=== PATIENT | female | born 1960 | race Caucasian/White ===

== ENCOUNTER 2019-12-13 15:52 | Inpatient (IN) ==
[2019-12-13] MEDS ORDERED: CLINDAMYCIN INJ 600 MG in PREMIX 1 EACH IV STA (17:16)
[2019-12-13] MEDS ORDERED: CIPROFLOXACIN INJ 400 MG in PREMIX 1 EACH IV STA (17:20)
[2019-12-13 17:59] LABS: Alanine Aminotransferase 19 U/L (13-56); Albumin 2.7 G/DL (3.4-5.0); Alkaline Phosphatase 257 U/L (45-117); Aspartate Amino Transferase 35 U/L (0-37); Blood Urea Nitrogen 11 MG/DL (7-18); Calcium 9.4 MG/DL (8.5-10.1); Estimated Glom Filtration Rate 54 ML/MIN; Glucose 469 MG/DL (74-106); Osmolality,Calculated 274.2 MOS/KG (273-304); Total Protein 8.1 G/DL (6.4-8.3)
[2019-12-13 18:24] LABS: Bacteria,Urine Occasional /HPF (Few); Bilirubin,Urine Negative (Negative); Blood, Urine Large mg/dL (Negative); Glucose,Urine (UA) >=500 mg/dL (Negative); Ketones,Urine Negative (Negative); Nitrite,Urine Negative (Negative); Protein,Urine Negative; RBC,Urine 11 /HPF (0-4); Urine Appearance CLEAR (Clear); Urine Color Straw (Yellow); Urine Specific Gravity 1.013 (1.001-1.035); Urine Urobilinogen < 2.0 EU/DL (0.2-1.0); WBC,Urine 4 /HPF (0-6)
[2019-12-13] MEDS ORDERED: ONDANSETRON 4 MG/2 ML VIAL IV PRN (19:05)
[2019-12-13] MEDS ORDERED: DEXTROSE 50% 25 GM/50 ML VIAL IV PRN (19:05)
[2019-12-13] MEDS ORDERED: GLUCAGON 1 MG VIAL IM PRN (19:05)
[2019-12-13] MEDS ORDERED: DOCUSATE SODIUM 100 MG CAPSULE PO PRN (19:05)
[2019-12-13] MEDS ORDERED: CIPROFLOXACIN INJ 400 MG in PREMIX 1 EACH IV SCH (19:30)
[2019-12-13] MEDS ORDERED: SODIUM CHLORIDE 0.9% 2,350 ML IV ONE (20:00)
[2019-12-13] MEDS: MORPHINE 4 MG/1 ML VIAL IV PRN (20:29)
[2019-12-13] MEDS ORDERED: INSULIN REGULAR 100 UNIT/ML SUBCUT ONE (20:30)
[2019-12-13] MEDS ORDERED: ENOXAPARIN 40 MG/0.4 ML SYRINGE SUBCUT SCH (21:00)
[2019-12-13] MEDS ORDERED: SODIUM CHLORIDE 0.9% 1,000 ML IV ONE (21:00)
[2019-12-13] MEDS: INSULIN GLARGINE 100 UNIT/ML SUBCUT SCH (21:52)
[2019-12-13] MEDS: INSULIN REGULAR 100 UNIT/ML SUBCUT SCH (21:53)
[2019-12-13] MEDS ORDERED: ZALEPLON 5 MG CAPSULE PO PRN (23:46)
[2019-12-14] MEDS: MORPHINE 4 MG/1 ML VIAL IV PRN (01:10)
[2019-12-14] MEDS: CLINDAMYCIN INJ 600 MG in PREMIX 1 EACH IV SCH ×3 (01:14→17:19)
[2019-12-14] MEDS: HYDROmorphone 2 MG/1 ML VIAL IV PRN ×4 (03:49→17:44)
[2019-12-14 05:43] LABS: Basophils # 0.1 10*3/uL (0.0-0.2); Basophils % 0.7 % (0.0-0.8); Eosinophils # 0.1 10*3/uL (0.0-0.87); Eosinophils % 1.6 % (0.00-10.9); Hematocrit 43.9 VOL% (35.7-47.0); Hemoglobin 14.4 GM/DL (12.0-16.0); Immature Granulocytes % 0.4 %; Immature Granulocytes Absolute 0.03 #; Lymphocytes # 1.8 10*3/uL (1.4-4.0); Lymphocytes % 22.9 % (21.3-54.2); Mean Corpuscular HGB Conc 32.8 GM/DL (32-36); Mean Corpuscular Volume 84.3 FL (87-102); Monocytes % 14.1 % (1.7-12.7); Neutrophils % 60.3 % (38.7-73.9); Red Blood Count 5.21 MC/CUMM (3.8-5.5); Red Cell Distribution Width 15.3 % (9.3-17.3); White Blood Count 7.7 T/CUMM (4-12)
[2019-12-14 05:49] LABS: Platelet Count 72 T/CUMM (130-400)
[2019-12-14 06:06] LABS: Osmolality,Calculated 279.5 MOS/KG (273-304); Thyroid Stimulating Hormone 4.21 uIU/ml (0.358-3.74)
[2019-12-14 06:07] LABS: Platelet Estimate Decreased
[2019-12-14] MEDS: INSULIN REGULAR 100 UNIT/ML SUBCUT SCH ×4 (09:10→21:03)
[2019-12-14] MEDS ORDERED: BUPIVACAINE MPF 0.25% 30 ML VIAL ONE (09:20)
[2019-12-14] MEDS ORDERED: LIDOCAINE 1% 20 ML VIAL ONE (09:20)
[2019-12-14] MEDS ORDERED: SEVOFLURANE 1 UNIT/15 MINUTE INH ONE (10:57)
[2019-12-14] MEDS ORDERED: propofoL 200 MG/20 ML VIAL IV ONE (10:57)
[2019-12-14] MEDS ORDERED: MIDAZOLAM 2 MG/2 ML VIAL ONE (10:57)
[2019-12-14] MEDS ORDERED: LIDOCAINE 2% 5 ML VIAL ONE (10:57)
[2019-12-14] MEDS ORDERED: fentaNYL 100 MCG/2 ML VIAL ONE (10:58)
[2019-12-14] MEDS ORDERED: PHENYLEPHRINE 1 MG/10 ML SYRINGE IV ONE (10:58)
[2019-12-14] MEDS: MEROPENEM 500 MG in SODIUM CHLORIDE 0.9% 100 ML IV SCH (17:47)
[2019-12-14] MEDS: INSULIN GLARGINE 100 UNIT/ML SUBCUT SCH (21:03)
[2019-12-14] MEDS ORDERED: diphenhydrAMINE CAP 25 MG CAPSULE PO PRN (21:23)
[2019-12-15] MEDS ORDERED: traMADol 50 MG TABLET PO PRN (03:17)
[2019-12-15] MEDS ORDERED: HYDROmorphone 2 MG/1 ML VIAL IM PRN (03:19)
[2019-12-15] MEDS: CLINDAMYCIN INJ 600 MG in PREMIX 1 EACH IV SCH ×4 (03:45→17:00)
[2019-12-15] MEDS ORDERED: diphenhydrAMINE CAP 25 MG CAPSULE PO ONE (03:55)
[2019-12-15] MEDS ORDERED: CLINDAMYCIN 600 MG/4 ML VIAL IM ONE (04:00)
[2019-12-15] MEDS: MEROPENEM 500 MG in SODIUM CHLORIDE 0.9% 100 ML IV SCH ×4 (04:45→21:53)
[2019-12-15 06:09] LABS: Basophils % 0.5 % (0.0-0.8); Eosinophils # 0.1 10*3/uL (0.0-0.87); Eosinophils % 1.4 % (0.00-10.9); Hematocrit 37.8 VOL% (35.7-47.0); Hemoglobin 12.9 GM/DL (12.0-16.0); Immature Granulocytes % 0.8 %; Immature Granulocytes Absolute 0.05 #; Lymphocytes # 1.1 10*3/uL (1.4-4.0); Lymphocytes % 17.2 % (21.3-54.2); Mean Corpuscular HGB Conc 34.1 GM/DL (32-36); Mean Corpuscular Volume 81.3 FL (87-102); Monocytes % 12.8 % (1.7-12.7); Neutrophils % 67.3 % (38.7-73.9); Red Blood Count 4.65 MC/CUMM (3.8-5.5); Red Cell Distribution Width 14.7 % (9.3-17.3); White Blood Count 6.6 T/CUMM (4-12)
[2019-12-15 06:10] LABS: Platelet Count 86 T/CUMM (130-400)
[2019-12-15 06:20] LABS: Osmolality,Calculated 271.5 MOS/KG (273-304)
[2019-12-15 06:32] LABS: Microcytosis Slight; Platelet Estimate Decreased
[2019-12-15] MEDS: INSULIN REGULAR 100 UNIT/ML SUBCUT SCH ×4 (07:57→20:55)
[2019-12-15] MEDS: MORPHINE 4 MG/1 ML VIAL IV PRN (11:48)
[2019-12-15] MEDS: SODIUM HYPOCHLORITE 0.25% IRRIG 473 ML BOTTLE TOP SCH (15:27)
[2019-12-15] MEDS: metFORMIN 500 MG TABLET PO SCH (16:58)
[2019-12-15] MEDS: INSULIN GLARGINE 100 UNIT/ML SUBCUT SCH (20:55)
[2019-12-15] MEDS ORDERED: traZODone 50 MG TABLET PO SCH (21:00)
[2019-12-16] MEDS: CLINDAMYCIN INJ 600 MG in PREMIX 1 EACH IV SCH ×2 (01:35→09:13)
[2019-12-16] MEDS: MEROPENEM 500 MG in SODIUM CHLORIDE 0.9% 100 ML IV SCH ×2 (03:13→09:13)
[2019-12-16 06:03] LABS: Basophils % 0.9 % (0.0-0.8); Eosinophils # 0.1 10*3/uL (0.0-0.87); Eosinophils % 2.1 % (0.00-10.9); Hematocrit 37.8 VOL% (35.7-47.0); Hemoglobin 12.7 GM/DL (12.0-16.0); Immature Granulocytes % 0.5 %; Immature Granulocytes Absolute 0.02 #; Lymphocytes # 1.2 10*3/uL (1.4-4.0); Lymphocytes % 27.1 % (21.3-54.2); Mean Corpuscular HGB Conc 33.6 GM/DL (32-36); Mean Corpuscular Volume 81.3 FL (87-102); Mean Platelet Volume 10.6 FL (9.6-12.0); Neutrophils % 52.4 % (38.7-73.9); Red Blood Count 4.65 MC/CUMM (3.8-5.5); Red Cell Distribution Width 14.8 % (9.3-17.3); White Blood Count 4.4 T/CUMM (4-12)
[2019-12-16 06:04] LABS: Platelet Count 85 T/CUMM (130-400)
[2019-12-16 06:22] LABS: Calcium 8.9 MG/DL (8.5-10.1); Osmolality,Calculated 284.5 MOS/KG (273-304)
[2019-12-16 06:22] LABS: Calcium 9.1 MG/DL (8.5-10.1); Osmolality,Calculated 281.8 MOS/KG (273-304)
[2019-12-16 06:24] LABS: Eosinophils 4 % (0-10); Hypochromasia 1+; Lymphocytes 32 % (20-55); Microcytosis 1+; Platelet Estimate Decreased; Segmented Neutrophils 55 % (50-85); Total Cells Counted 100
[2019-12-16] MEDS ORDERED: INSULIN GLARGINE 100 UNIT/ML SUBCUT SCH (07:45)
[2019-12-16] MEDS: INSULIN REGULAR 100 UNIT/ML SUBCUT SCH ×2 (09:12→12:20)
[2019-12-16] MEDS: metFORMIN 500 MG TABLET PO SCH (09:13)
[2019-12-16 10:59] VITALS: BP 150/88
[2019-12-16] MEDS: SODIUM HYPOCHLORITE 0.25% IRRIG 473 ML BOTTLE TOP SCH (11:01)
== END 2019-12-16 13:00 | disposition home health service (06) | DRG 854 ==
LOC: N.ED 15:52 → SUATTDRO 19:04 → N.EDINP 19:04 → N.3E 19:38
PROVIDERS: ADMIT Hospitalist; ATTEND Internal Medicine